=== PATIENT | female | born 1990 | race Caucasian/White ===

== ENCOUNTER → 2020-09-10 14:34 | Outpatient (BNVA) | payer OTHER, SELFPAY | PROVIDERS: PCP Internal Medicine; Referring Provider Internal Medicine; Visit Provider Internal Medicine | DX: R79.89 Other specified abnormal findings of blood chemistry (principal); E55.9 Vitamin D deficiency, unspecified; E83.52 Hypercalcemia; E03.9 Hypothyroidism, unspecified; E06.3 Autoimmune thyroiditis; L68.0 Hirsutism | CPT/HCPCS: 99204 ==

== ENCOUNTER 2020-09-11 08:44 | Outpatient (REF) | payer OTHER, SELFPAY ==
[2020-09-11 10:47] LABS: Alanine Aminotransferase 40 U/L (0-31); Albumin Level 4.8 g/dL (3.5-5.0); Alkaline Phosphatase 59 U/L (39-117); Anion Gap 13 (12-20); Aspartate Amino Transferase 30 U/L (5-31); Bilirubin Total 0.9 mg/dL (0.0-1.0); Blood Urea Nitrogen 12 mg/dL (9-16); Calcium 9.5 mg/dL (8.4-10.2); Carbon Dioxide 27 mmol/L (22-29); Chloride 101 mmol/L (96-108); Estimated Average Glucose 97 mg/dL; Estimated Glomerular Filt Rate > 60; Glucose Random 84 mg/dL (60-115); Sodium 137 mmol/L (135-145); Total Protein 7.6 g/dL (6.5-8.0)
[2020-09-11 10:52] LABS: Albumin Level 4.7 g/dL (3.5-5.0); Calcium 9.4 mg/dL (8.4-10.2); Cholesterol 203 mg/dL; HDL Cholesterol 45 mg/dL; LDL Cholesterol Calculated 109 mg/dl; Triglycerides 247 mg/dL
[2020-09-11 11:08] LABS: Free T4 (Free Thyroxine) 0.92 ng/dL (0.71-1.85)
[2020-09-11 11:15] LABS: Thyroid Stimulating Hormone 4.42 mIU/mL (0.32-4.0); Vitamin D 25-OH Total 20.5 ng/mL (>30)
[2020-09-12 03:17] LABS: Prolactin 16.2 ng/mL
[2020-09-12 10:37] LABS: Sex Hormone Binding Globulin 17 nmol/L (17-124)
[2020-09-12 14:07] LABS: Calcium, Ionized 4.8 mg/dL (4.8-5.6)
[2020-09-12 20:17] LABS: DHEA Sulfate 343 mcg/dL (23-266)
[2020-09-13 00:12] LABS: Lutenizing Hormone 5.5 mIU/mL
[2020-09-13 03:56] LABS: LDL Cholesterol Direct 123 mg/dL (<100)
[2020-09-15 19:17] LABS: Estradiol Ultra Sensitive 214 pg/mL
[2020-09-15 22:41] LABS: Androstenedione 223 ng/dL
[2020-09-17 15:27] LABS: Testosterone, Free 9.5 pg/mL (0.1-6.4); Testosterone, Total 51 ng/dL (2-45)
[2020-09-17 20:52] LABS: Calcium (PTHI) 9.5 mg/dL (8.6-10.2); PTHI 55 pg/mL (14-64)
== END 2020-09-11 08:45 | disposition home or self-care (01) ==
LOC: HO.10HDL 08:44
PROVIDERS: Visit Provider Internal Medicine
DX: R79.89 Other specified abnormal findings of blood chemistry (principal); E83.52 Hypercalcemia; E55.9 Vitamin D deficiency, unspecified
CPT/HCPCS: 80053; 80061; 82040; 82157; 82306; 82310; 82330; 82627; 82670; 83001; 83002; 83036; 83498; 83721; 83970; 84146; 84270; 84402; 84403; 84439; 84443

== ENCOUNTER 2020-09-12 06:10 | Outpatient (REF) | payer OTHER, SELFPAY ==
[2020-09-12 07:02] LABS: Glucose Fasting 101 mg/dL (60-99)
[2020-09-12 08:49] LABS: Glucose 1 Hour 126 mg/dL
[2020-09-12 09:51] LABS: Glucose 2 Hour 124 mg/dL
[2020-09-15 21:58] LABS: Adrenocorticotropic Hormone 30 pg/mL (6-50)
== END 2020-09-12 06:11 | disposition home or self-care (01) ==
LOC: HO.LAB 06:10
PROVIDERS: PCP Internal Medicine; Visit Provider Internal Medicine
DX: R79.89 Other specified abnormal findings of blood chemistry (principal)
CPT/HCPCS: 82024; 82533

== ENCOUNTER 2020-10-10 08:32 | Outpatient (REF) | payer OTHER, SELFPAY ==
--- NOTE | 2020-10-10 08:37 | CT_ITS ---
EXAMINATION: CT ABDOMEN WITHOUT AND WITH CONTRAST CLINICAL INFORMATION: Evaluate for adrenal glands COMPARISON: None TECHNIQUE: Contiguous axial thin section helical images of the abdomen were performed before and after the administration of oral contrast and 85 mL of Omnipaque 350 intravenous contrast. The data set was reformatted in the coronal and sagittal planes and reviewed on an independent workstation. This CT examination was performed using dose optimization techniques as appropriate, variously including the following: *Automated exposure control *Adjustment of mA and/or kV according to patient size (this includes techniques or standardized protocols for targeted exams where dose is matched to indication/reason for exam; i.e. extremities or head) *Use of iterative reconstruction technique DLP: 815 mGy-cm FINDINGS: LUNG BASES: The lung bases are clear. LIVER, GALLBLADDER, AND BILIARY TREE: The liver is normal in size, shape and contour. No focal liver lesion or biliary duct dilatation. The gallbladder has been removed. PANCREAS: Normal SPLEEN: Normal ADRENAL GLANDS AND KIDNEYS: The adrenal glands are normal. No nodule is seen. The kidneys are normal. BOWEL LOOPS: Visualized small and large bowel is normal. The visualized appendix is normal. LYMPH NODES: There are no enlarged lymph nodes. There is no ascites. VASCULAR: Unremarkable. BONES: Unremarkable CT/CT abdomen wo/w con IMPRESSION: Normal-appearing adrenal glands. No nodule seen. Post cholecystectomy.
[2020-10-10] MEDS: iohexoL 350 MG/ML 100 ML INFUS..BTL IV (09:55)
== END 2020-10-10 08:33 | disposition home or self-care (01) ==
LOC: HO.CT 08:32
PROVIDERS: PCP Internal Medicine; Visit Provider Internal Medicine
DX: R79.89 Other specified abnormal findings of blood chemistry (principal)
CPT/HCPCS: 74170; Q9967

== ENCOUNTER → 2020-10-22 08:10 | Outpatient (BNVA) | payer OTHER, SELFPAY | PROVIDERS: PCP Internal Medicine; Referring Provider Internal Medicine; Visit Provider Internal Medicine | DX: Z76.89 Persons encountering health services in other specified circumstances (principal) ==

== ENCOUNTER 2020-10-24 07:17 | Outpatient (REF) | payer OTHER, SELFPAY ==
[2020-10-28 01:18] LABS: Adrenocorticotropic Hormone <5 pg/mL (6-50)
[2020-10-29 15:18] LABS: Dexamethasone 246 ng/dL
== END 2020-10-24 07:18 | disposition home or self-care (01) ==
LOC: HO.LAB 07:17
PROVIDERS: PCP Internal Medicine; Visit Provider Internal Medicine
DX: R79.89 Other specified abnormal findings of blood chemistry (principal)
CPT/HCPCS: 80299; 82024; 82533

== ENCOUNTER → 2020-11-17 11:33 | Outpatient (BNVA) | payer OTHER, SELFPAY | PROVIDERS: PCP Internal Medicine; Referring Provider Internal Medicine; Visit Provider Internal Medicine | DX: Z76.89 Persons encountering health services in other specified circumstances (principal) ==

== ENCOUNTER 2020-11-26 08:02 | Outpatient (REF) | payer OTHER, SELFPAY ==
[2020-11-26 09:51] LABS: Free T4 (Free Thyroxine) 0.94 ng/dL (0.71-1.85); Thyroid Stimulating Hormone 2.85 uIU/mL (0.32-4.0)
== END 2020-11-26 08:03 | disposition home or self-care (01) ==
LOC: HO.LAB 08:02
PROVIDERS: PCP Internal Medicine; Visit Provider Internal Medicine
DX: E03.9 Hypothyroidism, unspecified (principal)
CPT/HCPCS: 84439; 84443

== ENCOUNTER 2021-03-28 16:52 | Emergency (ER) | payer OTHER, SELFPAY ==
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
[2021-03-28 17:17] VITALS: BP 140/70; PULSE 78; RESP 16; TEMP 36.2; O2SAT 98; BMI 36.5
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
[2021-03-28] MEDS: Ibuprofen 600 MG TABLET PO (17:36)
[2021-03-28] MEDS: Lidocaine 4 % Patch ADH..PATCH 1 PATCH TRANSDERMA (17:36)
[2021-03-28] MEDS: Cyclobenzaprine HCl 10 MG TABLET PO (17:36)
== END 2021-03-28 18:14 | disposition home or self-care (01) ==
LOC: HO.ED 17:49
PROVIDERS: Emergency Provider Emergency Medicine; PCP Internal Medicine
DX: S43.401A Unspecified sprain of right shoulder joint, initial encounter (principal); M25.511 Pain in right shoulder; V43.52XA Car driver injured in collision with other type car in traffic accident, initial encounter; Y93.9 Activity, unspecified; Y92.410 Unspecified street and highway as the place of occurrence of the external cause; Y99.9 Unspecified external cause status; Z79.899 Other long term (current) drug therapy
CPT/HCPCS: 73030; 99284

== ENCOUNTER 2021-05-18 11:07 | Emergency (ER) | payer OTHER, SELFPAY ==
--- NOTE | ~2021-05-18 | CT_ITS ---
EXAMINATION: CT HEAD WITHOUT CONTRAST CLINICAL INFORMATION: Headache COMPARISON: None TECHNIQUE: Contiguous axial imaging was performed from the skull base to vertex without intravenous administration of contrast. This CT examination was performed using dose optimization techniques as appropriate, variously including the following: *Automated exposure control *Adjustment of mA and/or kV according to patient size (this includes techniques or standardized protocols for targeted exams where dose is matched to indication/reason for exam; i.e. extremities or head) *Use of iterative reconstruction technique DLP: 651 mGy-cm FINDINGS: There is no evidence of acute intracranial hemorrhage or territorial infarction. No abnormal mass effect or midline shift is seen. Rueda to white matter differentiation is well preserved. No extra-axial fluid collections are identified. The ventricles are normal in size. There is no abnormal attenuation within the brain parenchyma. The osseous structures and soft tissues are normal. The mastoid air cells and visualized portions of the paranasal sinuses are well aerated. CT/CT head/brain wo con IMPRESSION: Normal exam.
--- NOTE | ~2021-05-18 | CT_ITS ---
EXAMINATION: CT FACIAL BONES WITHOUT CONTRAST CLINICAL INFORMATION: Severe sinusitis COMPARISON: None TECHNIQUE: Axial images through the paranasal sinuses without contrast. Sagittal and coronal reconstructions on the technologist workstation were performed. This CT examination was performed using dose optimization techniques as appropriate, variously including the following: *Automated exposure control *Adjustment of mA and/or kV according to patient size (this includes techniques or standardized protocols for targeted exams where dose is matched to indication/reason for exam; i.e. extremities or head) *Use of iterative reconstruction technique DLP: 445 mGy-cm FINDINGS: There is underaeration or hypoplasia of the right frontal sinus. Paranasal sinuses are otherwise well aerated and clear. No evidence of sinusitis is seen. The ostiomeatal complexes are patent bilaterally. Nasal septum is midline. The nasal cavity is normal. The mastoid air cells and middle ears are clear. The temporomandibular joints are normal. The salivary glands are normal. No enlarged lymph nodes are seen. The orbits are normal. CT/CT facial bones wo con IMPRESSION: No evidence of sinusitis.
[2021-05-18 11:31] VITALS: BP 117/70; PULSE 74; RESP 16; TEMP 36.6; O2SAT 100; BMI 36.5
[2021-05-18 12:10] VITALS: BP 124/78; PULSE 69; RESP 16; O2SAT 99
--- NOTE | 2021-05-18 12:33 | ED_ITS ---
HPI - Headache General Chief Complaint: Headache Stated Complaint: headache Time Seen by Provider: 05/18/21 12:09 Source: patient Mode of arrival: ambulatory Limitations: no limitations History of Present Illness HPI Narrative: Patient presents to the intermittent headache for 1.5 months patient describes headache as pain on top of the head and sinuses. Patient denies any blurry vision, nausea, vomiting, photophobia, phonophobia, slurred speech, loss of vision, paralysis of extremities, chest pain, dizziness, or shortness of breath. Patient denies any ringing ear or trouble walking. Patient denies any loss of central or peripheral vision. Patient denies any nipple discharge. Patient denies any elevated high blood pressure MD elicited complaint: headache Related Data Previous Rx's Medication Instructions Recorded cholecalciferol (vitamin D3) 50 50 mcg PO DAILY 30 Days #30 cap 10/22/20 mcg (2,000 unit) capsule levothyroxine 75 mcg tablet 75 mcg PO DAILY 30 Days #30 tab 10/22/20 metformin 500 mg tablet,extended 500 mg PO BID 30 Days #60 tab 11/17/20 release 24hr cyclobenzaprine 10 mg PO TID PRN #14 tab 03/28/21 ibuprofen 600 mg PO Q6H PRN #30 tab 03/28/21 lidocaine 1 patch TOPICAL DAILY PRN #10 ea 03/28/21 [id number] 1 cap PO Q4-6H PRN 3 Days #12 cap 05/18/21 [Fioricet] naproxen 500 mg PO BID PRN #20 tab 05/18/21 Allergies Allergy/AdvReac Type Severity Reaction Status Date / Time No Known Allergies Allergy Verified 05/18/21 12:36 Review of Systems Review of Systems: Yes all other systems are reviewed and are negative Constitutional: Constitutional: Reports as per HPI, Reports no additional constitutional complaints and Reports headache(s) Eyes: Eyes: Reports as per HPI and Reports no additional eye complaints ENT: Reports system reviewed and no additional complaints, except as documented, Reports as per HPI and Reports headache(s) Cardiovascular: Cardiovascular: Reports as per HPI and Reports no additional cardiovascular complaints Respiratory: Respiratory: Reports as per HPI and Reports no additional respiratory complaints Gastrointestinal: Gastrointestinal: Reports as per HPI and Reports no additional gastrointestinal complaints Genitourinary: Genitourinary: Reports no additional female genitourinary complaints and Reports as per HPI Musculoskeletal: Musculoskeletal: Reports no additional musculoskeletal complaints and Reports as per HPI Neurologic: Reports system reviewed and no additional complaints, except as documented, Reports as per HPI and Reports headache(s) Psychiatric: Psychiatric: Reports no additional psychiatric complaints and Reports as per HPI [facility] Past Medical History Medical History Elevated cortisol level Elevated testosterone level in female Hypercalcemia Hypothyroidism Vitamin D deficiency Surgical History Hx laparoscopic cholecystectomy Family History Family History Maternal Uncle Nephrolithiasis Father No problems noted. Mother Cancer Social History Social History Alcohol intake: never Advance Directives: Yes Advance Directives on File: Yes Advance Directives Date on File: 09/11/20 Patient : No Physical Exam Vital Signs: Vital Signs: Last Vital Signs Temp 98 F 05/18/21 11:31 Pulse 82 05/18/21 14:06 Resp 16 05/18/21 14:06 BP 122/77 05/18/21 14:06 Pulse Ox 98 05/18/21 14:06 Body Mass Index 36.5 Const: General: cooperative, healthy appearing, comfortable, no acute distress, well developed, alert, awake and Physically active Orientation/consciousness: oriented to person, oriented to place and patient oriented x3 HENMT: Head: Yes normal to inspection, Yes No palpable skull fracture present, Yes normocephalic, Yes atraumatic, Yes abrasion, No Acrocyanosis present, No Browning's sign, No contusion, No cranial bruits, No hematoma, No laceration, No occipital foramen tenderness, No palpable skull fracture, No raccoon eyes, No scalp lesion, No scalp tenderness, No Temporal artery tenderness present and No periorbital ecchymosis Eyes: General: appearance normal, both eyes and all related structures Neck: Neck: Yes normal visual inspection, Yes full ROM, Yes no lymphadenopathy, Yes no meningeal signs, Yes trachea midline, Yes supple and No tender Chest: Chest palpation & inspection: normal inspection of the chest and normal palpation of entire chest wall Resp: Effort & Inspection: normal respiratory effort and able to speak in complete sentences Auscultation: clear to auscultation bilaterally Cardio: Jugular venous distension: no JVD Heart sounds: S1 normal heart sound present and S2 normal heart sound present GI: Inspection: Yes normal to inspection and No abdominal wall ecchymosis Palpation (GI): Soft to palpation, not firm, nontender, no guarding and not rigid : General: No CVA tenderness and Yes no CVA tenderness Back/Spine/Pelvis: Back: no CVA tenderness, No CVA tenderness and No back tenderness Skin: General skin exam: no rashes or lesions noted and elasticity normal Neuro: Other: Negative pronator drift. Negative facial droop. Negative slurred speech. All extremities equal strength 5+. [id number]-uk-[id number] and rapid hand movement intact. Negative Romberg General: oriented to person, oriented to place, patient oriented x3, gait normal, moves all extremities, Normal light touch and pain sensation, no meningeal signs and CN's II-XI intact bilaterally Cranial nerves: Yes CN's II-XII intact bilaterally Extrem: General: Yes normal to inspection and Yes full ROM Psych: Appearance: grossly normal, well kempt and not disheveled Course Course Course Narrative: Patient will have head CT for CT due to headache and face pain for over a month. Will do basic labs. Patient is not in any distress. Not suspecting temoporal arteritis, meningitis ,or stroke. Patient denies any bl urry vision. Fioricet only Reevaluation(s) Reevaluation #1: Patient's headache resolved after Fioricet. Head CT facial CT came back normal. Labs are normal. Patient is safe for discharge told to follow-up with her PCP and endocrinology Time: 14:13 MDM - Headache MDM Narrative Medical decision making narrative: Headache Lab Data Result diagrams: 05/18/21 12:37 05/18/21 12:37 Labs: Lab Results 05/18/21 05/18/21 Range/Units 12:37 12:37 WBC 7.6 (4.8-10.8) X10*3/uL RBC 4.56 (4.20-5.50) X10*6/uL Hgb 13.9 (12.0-16.0) g/dl Hct 39.8 (37-47) % MCV 87.3 (80-98) fL MCH 30.5 (27.0-33.0) pg MCHC 34.9 (31.0-35.0) g/dl RDW 13.0 (11.0-16.0) % Plt Count 270 (160-400) X10*3/uL MPV 9.8 (9.4-12.3) fL Immature Gran % (Auto) 0.3 (0.0-0.4) % Neut % (Auto) 56.3 (45-73) % Lymph % (Auto) 32.9 (20-40) % [place] % (Auto) 8.4 (2-11) % Eos % (Auto) 1.6 (0-4) % Baso % (Auto) 0.5 (0-2) % Lymph # (Auto) 2.5 (1.2-4.9) X10*3/uL [place] # (Auto) 0.6 (0.1-1.2) X10*3/uL Eos # (Auto) 0.1 (0.0-0.4) X10*3/uL Baso # (Auto) 0.0 (0.0-0.2) X10*3/uL Abs Immat Gran (auto) 0.02 (0.00-0.03) X10*3/uL Absolute Neuts (auto) 4.3 (2.0-8.3) X10*3/uL Absolute Nucleated RBC 0.000 (0.0-0.012) X10*3/uL Nucleated RBC % (auto) 0.0 (0.0-0.2) /100WBC Sodium 139 (135-145) mmol/L Potassium 4.2 (3.3-5.1) mmol/L Chloride 106 (96-108) mmol/L Carbon Dioxide 24 (22-29) mmol/L Anion Gap 13 (12-20) BUN 8 L (9-16) mg/dL Creatinine 0.85 (0.5-1.4) mg/dL Estim Creat Clear Calc 92.7 Estimated GFR > 60 Random Glucose 85 (60-115) mg/dL Calcium 9.3 (8.4-10.2) mg/dL Total Bilirubin 0.8 (0.0-1.0) mg/dL AST 18 (5-31) U/L ALT 20 (0-31) U/L Alkaline Phosphatase 52 (39-117) U/L Total Protein 7.0 (6.5-8.0) g/dL Albumin 4.5 (3.5-5.0) g/dL Beta HCG, Quant < 2 mIU/mL Discharge Plan Discharge Clinical Impression: Headache Patient Disposition: Home, Self-Care Instructions: Acute Headache (ED) Additional Instructions: Return to the ED for worsening headache, neck stiffness, fever, chills, elevated blood pressure, loss of central or peripheral vision, nipple discharge, slurred speech, loss of vision, paralysis of extremities, droop, or any other concerning symptoms. Please follow-up with your PCP Prescriptions: New naproxen 500 mg tablet 500 mg PO BID PRN (Reason: pain) Qty: 20 RF: 0 [id number]-[id number] [Fioricet] 50-300-40 mg capsule 1 cap PO Q4-6H PRN (Reason: headache) 3 Days Qty: 12 RF: 0 No Action cyclobenzaprine 10 mg tablet 10 mg PO TID PRN (Reason: muscle spasm) Qty: 14 RF: 0 lidocaine 4 % adhesive patch,medicated 1 patch topical DAILY PRN (Reason: pain) Qty: 10 RF: 0 ibuprofen 600 mg tablet 600 mg PO Q6H PRN (Reason: pain) Qty: 30 RF: 0 levothyroxine 75 mcg tablet 75 mcg PO DAILY 30 Days Qty: 30 RF: 11 cholecalciferol (vitamin D3) 50 mcg (2,000 unit) capsule 50 mcg PO DAILY 30 Days Qty: 30 RF: 11 metformin 500 mg tablet extended release 24hr 500 mg PO BID 30 Days Qty: 60 RF: 11 Stand Alone Forms: Work/School Release Interventions: ED Discharge Assessment Last Done: 05/18/21 14:23 Discharge Date/Time: 05/18/21 14:26 Print Language: Maori
[2021-05-18] MEDS: Butalb/Acetamin/Caff 50/325/40 TABLET 2 TAB PO (12:35)
[2021-05-18 12:40] LABS: MANUAL DIFF FLAG NO
[2021-05-18 12:41] LABS: Basophils Percent Auto 0.5 % (0-2); Eosinophils Absolute Auto 0.1 X10*3/uL (0.0-0.4); Eosinophils Percent Auto 1.6 % (0-4); Hematocrit 39.8 % (37-47); Hemoglobin 13.9 g/dl (12.0-16.0); Imm Gran Abs Auto 0.02 X10*3/uL (0.00-0.03); Imm Gran Pct Auto 0.3 % (0.0-0.4); Lymphocytes Absolute Auto 2.5 X10*3/uL (1.2-4.9); Lymphocytes Percent Auto 32.9 % (20-40); Mean Corpuscular HGB Conc 34.9 g/dl (31.0-35.0); Mean Corpuscular Hemoglobin 30.5 pg (27.0-33.0); Mean Corpuscular Volume 87.3 fL (80-98); Mean Platelet Volume 9.8 fL (9.4-12.3); Monocytes Absolute Auto 0.6 X10*3/uL (0.1-1.2); Monocytes Percent Auto 8.4 % (2-11); Neutrophils Absolute Auto 4.3 X10*3/uL (2.0-8.3); Neutrophils Percent Auto 56.3 % (45-73); Platelet Count 270 X10*3/uL (160-400); Red Blood Count 4.56 X10*6/uL (4.20-5.50); White Blood Count 7.6 X10*3/uL (4.8-10.8)
[2021-05-18 13:22] LABS: Alanine Aminotransferase 20 U/L (0-31); Albumin Level 4.5 g/dL (3.5-5.0); Alkaline Phosphatase 52 U/L (39-117); Anion Gap 13 (12-20); Aspartate Amino Transferase 18 U/L (5-31); Bilirubin Total 0.8 mg/dL (0.0-1.0); Blood Urea Nitrogen 8 mg/dL (9-16); Calcium 9.3 mg/dL (8.4-10.2); Carbon Dioxide 24 mmol/L (22-29); Chloride 106 mmol/L (96-108); Creatinine Clr Calc Pharmacy 92.7; Estimated Glomerular Filt Rate > 60; Glucose Random 85 mg/dL (60-115); Potassium 4.2 mmol/L (3.3-5.1); Sodium 139 mmol/L (135-145)
[2021-05-18 13:24] LABS: HCG Quantitative < 2 mIU/mL
[2021-05-18 14:06] VITALS: BP 122/77; PULSE 82; RESP 16; O2SAT 98
== END 2021-05-18 14:26 | disposition home or self-care (01) ==
PROVIDERS: Physician Assistant; Emergency Provider Emergency Medicine
DX: R51.9 Headache, unspecified (principal)
CPT/HCPCS: 36415; 70450; 70486; 80053; 84702; 85025; 99284

== ENCOUNTER → 2021-05-21 11:15 | Outpatient (BNVA) | payer OTHER, SELFPAY | PROVIDERS: PCP Internal Medicine; Visit Provider Internal Medicine ==

== ENCOUNTER → 2021-06-30 13:03 | Outpatient (BNVA) | payer OTHER, SELFPAY | PROVIDERS: PCP Internal Medicine; Referring Provider Internal Medicine; Visit Provider Advanced Practice Midwife ==

== ENCOUNTER → 2021-11-12 08:37 | Outpatient (BNVA) | payer OTHER, SELFPAY | PROVIDERS: PCP Internal Medicine; Visit Provider Internal Medicine ==

== ENCOUNTER 2021-11-12 08:45 | Outpatient (REF) | payer OTHER, SELFPAY ==
[2021-11-12 11:21] LABS: Thyroid Stimulating Hormone 5.23 uIU/mL (0.32-4.0); Vitamin D 25-OH Total 18.7 ng/mL (>30)
[2021-11-14 05:52] LABS: DHEA Sulfate 319 mcg/dL (23-266); Sex Hormone Binding Globulin 33 nmol/L (17-124)
[2021-11-17 14:56] LABS: Testosterone, Free 5.1 pg/mL (0.1-6.4); Testosterone, Total 33 ng/dL (2-45)
== END 2021-11-12 08:46 | disposition home or self-care (01) ==
LOC: HO.10HDL 08:45
PROVIDERS: Visit Provider Internal Medicine
DX: E55.9 Vitamin D deficiency, unspecified (principal); E03.9 Hypothyroidism, unspecified; R79.89 Other specified abnormal findings of blood chemistry
CPT/HCPCS: 36415; 82306; 82627; 84270; 84402; 84403; 84439; 84443

== ENCOUNTER 2021-12-24 08:52 | Outpatient (REF) | payer OTHER, SELFPAY ==
[2021-12-24 09:28] LABS: MANUAL DIFF FLAG NO
[2021-12-24 09:52] LABS: Basophils Absolute Auto 0.1 X10*3/uL (0.0-0.2); Basophils Percent Auto 0.9 % (0-2); Eosinophils Absolute Auto 0.2 X10*3/uL (0.0-0.4); Eosinophils Percent Auto 3.9 % (0-4); Hematocrit 42.1 % (37.0-47.0); Hemoglobin 14.3 g/dl (12.0-16.0); Imm Gran Abs Auto 0.02 X10*3/uL (0.00-0.03); Imm Gran Pct Auto 0.4 % (0.0-0.4); Lymphocytes Absolute Auto 1.8 X10*3/uL (1.2-4.9); Lymphocytes Percent Auto 33.8 % (20-40); Mean Corpuscular Hemoglobin 30.4 pg (27.0-33.0); Mean Corpuscular Volume 89.4 fL (80.0-98.0); Mean Platelet Volume 10.5 fL (9.4-12.3); Monocytes Absolute Auto 0.4 X10*3/uL (0.1-1.2); Monocytes Percent Auto 8.3 % (2-11); Neutrophils Absolute Auto 2.8 x10*3/uL (2.0-8.3); Neutrophils Percent Auto 52.7 % (45-73); Platelet Count 309 X10*3/uL (160-400); Red Blood Count 4.71 X10*6/uL (4.20-5.50); Red Cell Distribution Width 12.8 % (11.0-16.0); White Blood Count 5.3 X10*3/uL (4.8-10.8)
[2021-12-24 10:17] LABS: Alanine Aminotransferase 20 U/L (0-31); Albumin Level 4.3 g/dL (3.5-5.0); Alkaline Phosphatase 55 U/L (39-117); Anion Gap 11 (12-20); Aspartate Amino Transferase 19 U/L (5-31); Bilirubin Total 0.5 mg/dL (0.0-1.0); Blood Urea Nitrogen 10 mg/dL (9-16); Calcium 9.8 mg/dL (8.4-10.2); Carbon Dioxide 26 mmol/L (22-29); Chloride 105 mmol/L (96-108); Cholesterol 223 mg/dL; Estimated Glomerular Filt Rate > 60; Glucose Fasting 96 mg/dL (60-99); HDL Cholesterol 52 mg/dL; LDL Cholesterol Calculated 139 mg/dl; Potassium 4.9 mmol/L (3.3-5.1); Sodium 137 mmol/L (135-145); Total Protein 7.2 g/dL (6.5-8.0); Triglycerides 161 mg/dL
[2021-12-24 10:33] LABS: Free T4 (Free Thyroxine) 0.72 ng/dL (0.71-1.85); Vitamin D 25-OH Total 29.8 ng/mL (>30)
[2021-12-24 10:40] LABS: Thyroid Stimulating Hormone 2.58 uIU/mL (0.32-4.0)
== END 2021-12-24 08:53 | disposition home or self-care (01) ==
LOC: HO.LAB 08:52
PROVIDERS: Absent Provider Nurse Practitioner Family; PCP Nurse Practitioner Family; Referring Provider Internal Medicine; Visit Provider Internal Medicine
DX: I10 Essential (primary) hypertension (principal); E78.00 Pure hypercholesterolemia, unspecified; E55.9 Vitamin D deficiency, unspecified; E03.9 Hypothyroidism, unspecified
CPT/HCPCS: 36415; 80053; 80061; 82306; 84439; 84443; 85025

== ENCOUNTER 2022-07-20 18:45 | Emergency (ER) | payer OTHER, SELFPAY ==
[2022-07-20 19:52] VITALS: BP 139/83; PULSE 71; RESP 16; TEMP 36.3; O2SAT 100; BMI 34.2
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
[2022-07-20 23:54] VITALS: BP 124/80; PULSE 61; RESP 17; O2SAT 98
== END 2022-07-21 | disposition home or self-care (01) ==
PROVIDERS: Emergency Provider Internal Medicine
DX: S13.4XXA Sprain of ligaments of cervical spine, initial encounter (principal); S46.911A Strain of unspecified muscle, fascia and tendon at shoulder and upper arm level, right arm, initial encounter; V43.52XA Car driver injured in collision with other type car in traffic accident, initial encounter; Y93.9 Activity, unspecified; Y92.410 Unspecified street and highway as the place of occurrence of the external cause; Y99.9 Unspecified external cause status; Z79.899 Other long term (current) drug therapy; Z87.891 Personal history of nicotine dependence
CPT/HCPCS: 99282; 99284

== ENCOUNTER 2022-10-26 08:06 | Emergency (ER) | payer OTHER, SELFPAY ==
--- NOTE | ~2022-10-26 | XR_ITS ---
EXAMINATION: XR CHEST CLINICAL INFORMATION: Cough x10 days COMPARISON: None TECHNIQUE: 2 views of the chest were obtained. FINDINGS: No significant abnormality is noted involving the heart, lungs, mediastinum, bony thorax or soft tissues. XR/XR chest 2V IMPRESSION: Unremarkable chest examination.
[2022-10-26 08:11] VITALS: BP 135/92; PULSE 99; RESP 16; TEMP 37.6; O2SAT 95; BMI 38.5
--- NOTE | 2022-10-26 09:26 | ED.URI ---
HPI - URI/Sore Throat General Chief Complaint: Upper Respiratory Symptoms Stated Complaint: Ear & Head Pain Time Seen by Provider: 10/26/22 08:44 Source: patient Mode of arrival: ambulatory Limitations: no limitations History of Present Illness HPI Narrative: 32-year-old female with a past medical history of migraines, hypothyroid, and PCOS presents to emergency department today with reports of a cough, sore throat, ear pain, and headache that started 2 weeks ago. She was recently seen by her PCP, 10 days ago, and started on amoxicillin. She completed her course of antibiotics this morning however she states she has not had any improvement in symptoms. She states both of her children have been ill at home and she believes she caught their cold. She denies any nasal congestion or rhinorrhea, changes in sputum color, difficulty swallowing, fever, chills, dizziness, diarrhea, constipation. She describes her headache as a pressure that worsens when coughing and chest pain when coughing with shortness of breath with exertion. She has not taken any umgb-jds-hfluwix analgesics today. She denies any chest pain or shortness of breath while at rest. MD elicited complaint: cough and sore throat Onset (ago): week(s) (2) Consistency: constant Severity: mild Able to tolerate fluids by mouth: Yes Exacerbating factors: deep breaths Relieving factors: nothing Context: sick contacts Associated symptoms: chest pain and shortness of breath (with exertion) Treatments prior to arrival: none Related Data Previous Rx's Medication Instructions Recorded metformin 500 mg tablet,extended 500 mg PO BID 30 days #60 tabs 11/17/20 release 24hr cholecalciferol (vitamin D3) 50 50 mcg PO DAILY 90 days #90 caps 10/13/22 mcg (2,000 unit) capsule levothyroxine 75 mcg tablet 75 mcg PO DAILY 30 days #30 tabs 10/13/22 topiramate 25 mg tablet 25 mg PO BEDTIME #30 tabs 10/13/22 amoxicillin 875 mg-potassium 1 tab PO BID 10 days #20 tabs 10/14/22 clavulanate 125 mg tablet weyjmfuxdt-xeoeqskengehb-tvfomtrx 1 tab PO Q6H PRN pain #7 tabs 10/14/22 50 mg-325 mg-40 mg tablet Allergies Allergy/AdvReac Type Severity Reaction Status Date / Time No Known Allergies Allergy Verified 10/13/22 16:18 Review of Systems Review of Systems: Yes all other systems are reviewed and are negative Constitutional: Constitutional: Reports no additional constitutional complaints, Denies body ache(s), Denies chills, Denies fever(s) and Reports headache(s) Eyes: Eyes: Reports no additional eye complaints and Denies change in vision ENT: Reports system reviewed and no additional complaints, except as documented, Reports Normal hearing present, Denies ear discharge, Reports headache(s), Denies nasal congestion, Denies nasal discharge and Reports sore throat Cardiovascular: Cardiovascular: Reports no additional cardiovascular complaints, Reports chest pain (with cough), Denies chest pain at rest, Denies epigastric discomfort, Reports dyspnea on exertion and Denies orthopnea Respiratory: Respiratory: Reports no additional respiratory complaints, Reports chest congestion, Reports cough, Denies pain on inspiration and Reports dyspnea on exertion Gastrointestinal: Gastrointestinal: Reports no additional gastrointestinal complaints, Denies constipation, Denies diarrhea, Denies nausea and Denies vomiting Genitourinary: Genitourinary: Reports no additional female genitourinary complaints Musculoskeletal: Musculoskeletal: Reports no additional musculoskeletal complaints, Denies myalgias, Denies numbness and Denies tingling Integumentary/Breasts: Skin/Breast: Reports system reviewed and no additional complaints, except as docu Neurologic: Reports system reviewed and no additional complaints, except as documented, Reports Normal hearing present, Reports headache(s), Denies numbness and Denies tingling PMFSH Past Medical History Attestation statement: The following information was validated with the patient. Source: old records reviewed Medical History BMI 37.0-37.9, adult Chronic shoulder pain (~03/2021) Elevated cortisol level Elevated testosterone level in female Encounter to establish care FH: breast cancer in first degree relative Hypercalcemia Hypothyroidism Migraine PCOS (polycystic ovarian syndrome) Vitamin D deficiency Surgical History Hx laparoscopic cholecystectomy Family History Family History Maternal Uncle Nephrolithiasis Father No problems noted. Mother Breast cancer, Onset Age: 58 Social History Social History Household Members: Family and Children Housing: House Alcohol intake: never Patient Tobacco Use Status: Former Tobacco user Tobacco use type: Cigarette e-Cigarette/Vaping Use: Never Used Advance Directives: No Advance Directives Date on File: 09/11/20 service: No Current occupational status: employed Current occupational exposures/hazards: No Cognitive needs: No Hearing needs: No Vision needs: No Physical Exam Vital Signs: Vital Signs: Last Vital Signs Temp 99.7 F 10/26/22 08:11 Pulse 99 10/26/22 08:11 Resp 16 10/26/22 08:11 BP 135/92 H 10/26/22 08:11 Pulse Ox 95 10/26/22 08:11 O2 Del Method 10/26/22 08:11 BMI result Body Mass Index 38.5 Const: General: cooperative, alert and awake Nutritional Appearance: well nourished Orientation/consciousness: patient oriented x3 Limitations: no limitations HEENT: Head: Yes normal to inspection and Yes atraumatic Ears: hearing grossly normal bilaterally, external ears normal, EAC's normal and TM abnormal with fluid behind the TM bilateral General nose exam: Normal external nose present and No nasal discharge present Face and sinus: Yes normal facial exam and Yes face symmetric Mouth: Normal oral and palatal mucosa present and tongue normal Teeth and gingiva: dentition normal Throat: Yes abnormal tonsil (2+) Eyes: General: appearance normal, both eyes and all related structures Visual Estrada: normal visual estrada by confrontation Alignment and Position: alignment normal Periorbital: periorbital findings normal Eyelids: Yes eyelids normal Conjunctivae: conjunctivae normal Sclerae: sclerae normal Pupils: Equal, round and reactive pupils present EOM: EOMs intact bilaterally Neck: Neck: Yes normal visual inspection and Yes full ROM Chest: Chest palpation & inspection: normal inspection of the chest Resp: Effort & Inspection: normal respiratory effort, able to speak in complete sentences and not labored Auscultation: clear to auscultation bilaterally, no crackles, no rhonchi and no wheezes Cardio: Rate: regular rate Rhythm: regular rhythm Back/Spine/Pelvis: Cervical Spine: cervical ROM normal Skin: General skin exam: no rashes or lesions noted Neuro: General: patient oriented x3, gait normal and moves all extremities Cranial nerves: Yes Equal, round and reactive pupils present, Yes Bilaterally intact EOM present, Yes Midline tongue present, Yes Symmetric palate elevation present, Yes Normal hearing present and Yes Ability to bilaterally rotate head present Gait exam (Neuro): Normal gait present Motor exam (neuro): 5/5 motor strength present throughout Extrem: General: Yes normal to inspection, Yes full ROM and Yes capillary refill normal Psych: Appearance: grossly normal and well kempt Mental Status: mental status grossly normal Speech and movement: Normal speech and movement present Affect: normal affect Attitude: cooperative Course Course Course Narrative: 0900: Cefuroxime ordered due to visible fluid behind TM despite 10 day course of amoxicillin. COVID/flu/RSV swab and chest x-ray ordered. Medications Administered Discontinued Medications Generic Name Dose Route Start Last Admin Trade Name Freq PRN Reason Stop Dose Admin Cefuroxime Axetil 500 mg 10/26/22 09:17 10/26/22 09:29 Cefuroxime Axetil 500 Mg Tablet PO 10/26/22 09:18 500 mg ONCE ONE Administration MDM - URI/Sore Throat MDM Narrative Medical decision making narrative: 32-year-old female with a past medical history of migraines, hypothyroid, and PCOS presents to emergency department today with reports of a cough, sore throat, ear pain, and headache that started 2 weeks ago. Chest x-ray unremarkable. Serology positive for influenza A. History, physical, diagnostics, and plan discussed with patient with no unanswered questions. Educate that her symptoms are due to a viral infection and not bacterial and that she does not require an antibiotic for treatment. Discussed that she is out of range for Tamiflu as symptoms are greater than 3 days. Educated on transmission prevention of flu. Educated not to return to work if she has a fever, worsening cough, or rhinorrhea. She may return to work if she is fever free for 24 hours without the use of Tylenol or Motrin. Recommendation for symptom control with [id number] Tylenol, Motrin, and cough medicine as needed. Educated to return to the emergency department for fever despite taking Tylenol/Motrin, chills, worsening headache, shortness of breath at rest changes in vision, difficulty or inability to swallow, or any other concerning symptom. Recommended follow-up with primary care provider for further treatment and management. Medical Records Attestation: I reviewed the patient's medical records. Lab Data Attestation: I reviewed the patient's lab results. Labs: Lab Results 10/26/22 Range/Units 09:23 Influenza Type A (PCR) POSITIVE A (Negative) Influenza Type B (PCR) NEGATIVE (Negative) RSV RNA Qual (PCR) NEGATIVE (Negative) SARS-CoV-2 RNA (RT-PCR) NEGATIVE (Negative) Imaging Data Chest x-ray: Attestation: I personally reviewed and interpreted this imaging study as follows: My impression: No cardiopulmonary pathology Radiologist's impression: EXAMINATION: XR CHEST CLINICAL INFORMATION: Cough x10 days COMPARISON: None TECHNIQUE: 2 views of the chest were obtained. FINDINGS: No significant abnormality is noted involving the heart, lungs, mediastinum, bony thorax or soft tissues. XR/XR chest 2V IMPRESSION: Unremarkable chest examination. Dictated By: Clifton Proctor MD Signed By: <Electronically signed by Clifton Proctor MD in OV> 10/26/22938 DD/ 6 TD/TT:? 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 [place] Discharge Plan Discharge Clinical Impression: Flu Patient Disposition: Home, Self-Care Instructions: Influenza (ED) Additional Instructions: You have been diagnosed with influenza A today. You do not require an antibiotic for treatment of influenza A and are out of range for Tamiflu. You are safe for discharge today. Recommended to wash hands frequently, cover your mouth on coughing, and to please refrain from going to work if you have a fever, cough, runny nose. Recommended to manage symptoms with [id number] Tylenol, Motrin, and cough medicine as needed. Educated to return to the emergency room with fever despite treatment with Tylenol/Motrin, shortness of breath at rest, chest pain at rest, or any other emergent symptom that is concerning. Recommended to follow-up with a primary care provider for further treatment and management Prescriptions: No Action regodreeag-mgskqbjisdqqv-gilz 50-325-40 mg tablet 1 tab PO Q6H PRN (Reason: pain) Qty: 7 0RF amoxicillin-pot clavulanate 875-125 mg tablet 1 tab PO BID 10 Days Qty: 20 0RF topiramate 25 mg tablet 25 mg PO BEDTIME Qty: 30 0RF levothyroxine 75 mcg tablet 75 mcg PO DAILY 30 Days Qty: 30 11RF cholecalciferol (vitamin D3) 50 mcg (2,000 unit) capsule 50 mcg PO DAILY 90 Days Qty: 90 1RF metformin 500 mg tablet extended release 24hr 500 mg PO BID 30 Days Qty: 60 11RF Referrals: Noemy Patel FNP [Primary Care Provider] - Stand Alone Forms: Work/School Release Interventions: ED Discharge Assessment Last Done: 10/26/22 10:37 Print Language: Citizen Of [place]
[2022-10-26 10:06] LABS: Influenza A PCR POSITIVE (Negative); Influenza B PCR NEGATIVE (Negative); Resp Syncy Virus RNA Qual PCR NEGATIVE (Negative); SARS COV2 PCR INHOUSE NEGATIVE (Negative)
== END 2022-10-26 10:43 | disposition home or self-care (01) ==
PROVIDERS: Nurse Practitioner Family; Emergency Provider Emergency Medicine; PCP Nurse Practitioner Family
DX: J10.1 Influenza due to other identified influenza virus with other respiratory manifestations (principal); R05.9 Cough, unspecified; R51.9 Headache, unspecified; Z20.822 Contact with and (suspected) exposure to COVID-19; Z87.891 Personal history of nicotine dependence; Z79.899 Other long term (current) drug therapy
CPT/HCPCS: 0241U; 71046; 99283

== ENCOUNTER 2022-10-26 10:58 | Outpatient (REF) | payer OTHER, SELFPAY ==
[2022-10-26 15:21] LABS: Alanine Aminotransferase 23 U/L (0-31); Albumin Level 4.4 g/dL (3.5-5.0); Alkaline Phosphatase 59 U/L (39-117); Anion Gap 15 (12-20); Aspartate Amino Transferase 17 U/L (5-31); Bilirubin Total 0.8 mg/dL (0.0-1.0); Blood Urea Nitrogen 9 mg/dL (9-16); Calcium 9.4 mg/dL (8.4-10.2); Carbon Dioxide 25 mmol/L (22-29); Chloride 101 mmol/L (96-108); Estimated Glomerular Filt Rate > 60; Glucose Random 83 mg/dL (60-115); Potassium 4.7 mmol/L (3.3-5.1); Sodium 136 mmol/L (135-145); TSH reflex Free T4 2.71 uIU/mL (0.32-4.0); Total Protein 7.2 g/dL (6.5-8.0); Vitamin D 25-OH Total 23.4 ng/mL (>30)
== END 2022-10-26 10:59 | disposition home or self-care (01) ==
LOC: HO.10HDL 10:58
PROVIDERS: Visit Provider Nurse Practitioner Family
DX: E55.9 Vitamin D deficiency, unspecified (principal); E03.9 Hypothyroidism, unspecified
CPT/HCPCS: 36415; 80053; 82306; 84443

== ENCOUNTER → 2023-03-08 13:58 | Outpatient (BNVA) | payer OTHER, SELFPAY | PROVIDERS: PCP Nurse Practitioner Family; Visit Provider Advanced Practice Midwife ==

== ENCOUNTER 2025-11-04 08:02 | Outpatient (REF) | payer OTHER, SELFPAY ==
[2025-11-04 10:57] LABS: MANUAL DIFF FLAG NO
[2025-11-04 11:18] LABS: Hematocrit 41.5 % (37.0-47.0); Hemoglobin 14.2 g/dl (12.0-16.0); Imm Gran Abs Auto 0.01 X10*3/uL (0.00-0.03); Imm Gran Pct Auto 0.2 % (0.0-0.4); Lymphocytes Absolute Auto 2.2 X10*3/uL (1.2-4.9); Mean Corpuscular HGB Conc 34.2 g/dl (31.0-35.0); Mean Corpuscular Hemoglobin 30.7 pg (27.0-33.0); Mean Corpuscular Volume 89.8 fL (80.0-98.0); NRBC Abs Auto 0.000 X10*3/uL (0.0-0.012); NRBC Pct Auto 0.0 /100WBC (0.0-0.2); Platelet Count 298 X10*3/uL (160-400); Red Blood Count 4.62 X10*6/uL (4.20-5.50); White Blood Count 5.9 X10*3/uL (4.8-10.8)
[2025-11-04 12:03] LABS: Alanine Aminotransferase 41 U/L (0-31); Albumin Level 4.7 g/dL (3.5-5.0); Alkaline Phosphatase 45 U/L (39-117); Anion Gap 10 (12-20); Aspartate Amino Transferase 34 U/L (5-31); Blood Urea Nitrogen 9 mg/dL (9-16); Calcium 9.6 mg/dL (8.4-10.2); Carbon Dioxide 26 mmol/L (22-29); Chloride 108 mmol/L (96-108); Cholesterol 164 mg/dL (<200); Estimated Glomerular Filt Rate > 60; HDL Cholesterol 39 mg/dL (>40); Potassium 4.7 mmol/L (3.3-5.1); Sodium 139 mmol/L (135-145); Total Protein 7.1 g/dL (6.5-8.0); Triglycerides 111 mg/dL (<150)
[2025-11-04 12:06] LABS: Free T4 (Free Thyroxine) 0.81 ng/dL (0.71-1.85)
[2025-11-04 13:00] LABS: Reflex LDLD? No
[2025-11-08 10:44] LABS: Vitamin D 25-OH, D2 <4 ng/mL; Vitamin D 25-OH, D3 20 ng/mL; Vitamin D 25-OH, Total 20 ng/mL (30-100)
== END 2025-11-04 08:03 | disposition home or self-care (01) ==
LOC: HO.10HDL 08:02
PROVIDERS: Visit Provider Student in an Organized Health Care Education/Training Program
DX: Z00.00 Encounter for general adult medical examination without abnormal findings (principal); E03.9 Hypothyroidism, unspecified; Z13.1 Encounter for screening for diabetes mellitus; E55.9 Vitamin D deficiency, unspecified; R63.5 Abnormal weight gain
CPT/HCPCS: 36415; 80053; 80061; 82306; 83036; 84439; 84443; 85025